=== PATIENT | male | born 1975 | race Caucasian/White ===

== ENCOUNTER 2017-11-09 00:35 | Inpatient (IN) | payer OTHER ==
[~2017-11-09] VITALS: Ht 185.4 cm; Wt 90.1 kg
[~2017-11-09 00:35] MED LIST: ALBU18HF INH; CEFD300C37 PO; CYCL-259 PO; DOXY100T PO; MORP15TA PO; MORP30TA3 PO; OXYC1TAB7 PO; OXYC1TAB8 PO; POLY17PO5 PO; PRED5TAB PO; RIVA1TAB PO; RIVA20TA PO; SENN-66 PO; SENN1TAB7 PO; ZOLP12.52 PO
[2017-11-09] MEDS ORDERED: PROMETHAZINE 25 MG/ML, 1ML ONE (01:55)
[2017-11-09] MEDS ORDERED: morphine SULFATE 10 MG/ML, 1ML ONE ×2 (01:56→11:02)
[2017-11-09] MEDS ORDERED: ONDANSETRON 2MG/ML, 2ML ONE (01:56)
[2017-11-09 02:00] LABS: ALANINE AMINOTRANSFERASE 55 U/L (12-78); ALBUMIN 3.6 g/dL (3.4-5.0); ANION GAP 8 mmol/L (5-15); CALCIUM 9.1 mg/dL (8.5-10.1); CHLORIDE 104 mmol/L (98-107); CREATININE 1.05 mg/dL (0.7-1.3)
[2017-11-09] MEDS ORDERED: SODIUM CHLORIDE FLUSH 10ML SYR IVF ONE (02:00)
[2017-11-09] MEDS ORDERED: PROMETHAZINE 25 MG/ML, 1ML IM ONE (02:00)
[2017-11-09] MEDS ORDERED: SODIUM CHLORIDE 0.9% 1,000ML IVBOLUS ONE ×3 (02:00→08:30)
[2017-11-09] MEDS ORDERED: ONDANSETRON 2MG/ML, 2ML IVPush ONE (02:00)
[2017-11-09 02:02] LABS: MD YES; MEAN CORPUSCULAR HGB CONC 32.4 g/dL (33.2-36.2); MEAN CORPUSCULAR VOLUME 89.4 fL (81-97); MEAN PLATELET VOLUME 7.7 fL (7.4-10.4); PLATELET COUNT 376 x10^3/uL (130-400); RED CELL DISTRIBUTION WIDTH 14.9 % (9.4-14.8)
[2017-11-09 02:03] LABS: ALKALINE PHOSPHATASE 61 U/L (45-117); BILIRUBIN,TOTAL 1.4 mg/dL (0.2-1.0); TOTAL PROTEIN 7.4 g/dL (6.4-8.2)
[2017-11-09] MEDS: MORPHINE SULFATE 4 MG/ML, 1ML IVPush PRN ×2 (02:10→11:11)
[2017-11-09 02:36] LABS: BASOS#(MANUAL) 0.41 x10^3/uL (0-0.1); BASOS% (MANUAL) 2 % (0-1); EOS#(MANUAL) 0.21 x10^3/uL (0.0-0.4); EOS% (MANUAL) 1 % (1-7); LYMPH#(MANUAL) 2.07 x10^3/uL (1-3.4); LYMPHS% (MANUAL) 10 % (22-44); MONOS#(MANUAL) 1.66 x10^3/uL (0.3-2.7); MONOS% (MANUAL) 8 % (2-9); SEG#(MANUAL) 16.35 x10^3/uL (1.8-6.8); SEGS% (MANUAL) 79 % (42-75)
[2017-11-09 02:38] LABS: <PLATELET ESTIMATE> ADEQUATE; <PLT MORPHOLOGY> NORMAL PLT MORPH; <RBC MORPHOLOGY> NORMAL
[2017-11-09] MEDS ORDERED: OMNIPAQUE 350 MG/ML, 100ML BOTTLE ONE ×2 (02:38→16:01)
[2017-11-09] MEDS ORDERED: PRED50TA PO (03:18)
[2017-11-09] MEDS ORDERED: HYDROmorphone 2 MG/ML, 1ML ONE ×3 (03:38→12:30)
[2017-11-09 03:42] LABS: MICROSCOPIC NOT IND
[2017-11-09 03:43] LABS: CULTURE INDICATED? NO
[2017-11-09] MEDS: HYDROmorphone 1 MG/ML, 1ML IVPush PRN ×2 (03:44→05:54)
[2017-11-09] MEDS ORDERED: SODIUM CHLORIDE 0.9% 1,000 ML IV ONE (05:42)
[2017-11-09] MEDS: D5%-0.45% NACL 1,000 ML IV SCH ×2 (06:53→21:11)
[2017-11-09] MEDS ORDERED: GUAIFENESIN/DM 200-20MG, 10ML UDC PO PRN (07:00)
[2017-11-09] MEDS ORDERED: ONDANSETRON 2MG/ML, 2ML IVPush PRN (07:00)
[2017-11-09] MEDS ORDERED: ONDANSETRON ODT 4 MG PO PRN (07:00)
[2017-11-09] MEDS ORDERED: morphine SULFATE 10 MG/ML, 1ML IVPush PRN (07:00)
[2017-11-09] MEDS ORDERED: LABETALOL 5MG/ML, 20ML IVPush PRN (07:00)
[2017-11-09] MEDS ORDERED: HYDROcodone/APAP 5/325 TABLET PO PRN (07:00)
[2017-11-09] MEDS ORDERED: MAALOX/HYOSCYAMINE/LIDOCAINE 45 ML BTL PO ONE (08:30)
[2017-11-09] MEDS ORDERED: ALBUTEROL SULFATE 2.5 MG/3 ML ONE (08:42)
[2017-11-09 09:26] LABS: D-DIMER 0.91 ug/mlFEU (0.00-0.52); INTERNATIONAL NORMALIZED RATIO 1.01 (0.93-1.1); PROTHROMBIN TIME 10.4 Seconds (9.6-11.5)
[2017-11-09] MEDS ORDERED: CYCLOBENZAPRINE 10 MG TABLET ONE (10:10)
[2017-11-09] MEDS ORDERED: SENNA/DOCUSATE TABLET ONE (10:10)
[2017-11-09] MEDS ORDERED: MAALOX/HYOSCYAMINE/LIDOCAINE 45 ML BTL ONE (10:10)
[2017-11-09] MEDS: OMEPRAZOLE 20 MG CAPSULE.DR PO SCH (10:28)
[2017-11-09] MEDS: CYCLOBENZAPRINE 10 MG TABLET PO SCH ×2 (10:29→21:10)
[2017-11-09] MEDS: SENNA/DOCUSATE TABLET PO SCH ×2 (10:29→21:00)
[2017-11-09] MEDS ORDERED: ALBUTEROL HFA 90 MCG/SPRAY INH SCH (11:00)
[2017-11-09] MEDS ORDERED: ALBUTEROL SULFATE 2.5 MG/3 ML NPPB PRN (12:00)
[2017-11-09 15:13] VITALS: BP 102/62
[2017-11-09 19:46] VITALS: BP 94/55
[2017-11-10 02:17] VITALS: BP 106/67
[2017-11-10 05:38] LABS: CHLORIDE 106 mmol/L (98-107)
[2017-11-10 05:42] LABS: MEAN CORPUSCULAR HEMOGLOBIN 29.6 pg (27.5-34.5); MEAN CORPUSCULAR HGB CONC 32.8 g/dL (33.2-36.2); MEAN CORPUSCULAR VOLUME 90.2 fL (81-97); MEAN PLATELET VOLUME 7.9 fL (7.4-10.4); PLATELET COUNT 337 x10^3/uL (130-400); RED CELL DISTRIBUTION WIDTH 14.7 % (9.4-14.8)
[2017-11-10 05:57] LABS: ALANINE AMINOTRANSFERASE 40 U/L (12-78); ALKALINE PHOSPHATASE 42 U/L (45-117); ANION GAP 6 mmol/L (5-15); BILIRUBIN,TOTAL 0.8 mg/dL (0.2-1.0); CALCIUM 8.7 mg/dL (8.5-10.1); CREATININE 0.89 mg/dL (0.7-1.3); TOTAL PROTEIN 6.4 g/dL (6.4-8.2)
[2017-11-10] MEDS: D5%-0.45% NACL 1,000 ML IV SCH (06:31)
[2017-11-10 06:51] LABS: BASOPHILS # (AUTO) 0.13 x10^3/uL (0-0.1); BASOPHILS % (AUTO) 1 % (0-1); EOSINOPHILS # (AUTO) 0.12 x10^3/uL (0-0.4); EOSINOPHILS % (AUTO) 1 % (1-7); LYMPHOCYTES # (AUTO) 2.44 x10^3/uL (1-3.4); LYMPHOCYTES % (AUTO) 23 % (22-44); MD SCAN; MONOCYTES # (AUTO) 1.57 x10^3/uL (0.2-0.8); MONOCYTES % (AUTO) 15 % (2-9); NEUTROPHILS # (AUTO) 6.34 x10^3/uL (1.8-6.8); NEUTROPHILS % (AUTO) 60 % (42-75)
[2017-11-10 07:17] VITALS: BP 97/60
[2017-11-10] MEDS ORDERED: SODIUM CHLORIDE 0.9% 1,000ML IVBOLUS ONE (08:00)
[2017-11-10] MEDS: SENNA/DOCUSATE TABLET PO SCH ×2 (09:00→20:28)
[2017-11-10] MEDS ORDERED: ALBUTEROL HFA 90 MCG/SPRAY INH PRN (11:00)
[2017-11-10] MEDS: CYCLOBENZAPRINE 10 MG TABLET PO SCH ×2 (11:27→20:28)
[2017-11-10] MEDS: OMEPRAZOLE 20 MG CAPSULE.DR PO SCH (11:27)
[2017-11-10 13:25] VITALS: BP 103/66
[2017-11-10 18:42] VITALS: BP 113/71
[2017-11-11 02:30] VITALS: BP 99/62
[2017-11-11 05:25] LABS: CHLORIDE 104 mmol/L (98-107)
[2017-11-11 05:31] LABS: ALANINE AMINOTRANSFERASE 35 U/L (12-78); ALBUMIN 2.8 g/dL (3.4-5.0); ALKALINE PHOSPHATASE 45 U/L (45-117); ANION GAP 5 mmol/L (5-15); BILIRUBIN,TOTAL 1.2 mg/dL (0.2-1.0); CALCIUM 8.7 mg/dL (8.5-10.1); CREATININE 0.84 mg/dL (0.7-1.3); TOTAL PROTEIN 6.1 g/dL (6.4-8.2)
[2017-11-11 05:38] LABS: MEAN CORPUSCULAR HEMOGLOBIN 29.7 pg (27.5-34.5); MEAN CORPUSCULAR HGB CONC 32.7 g/dL (33.2-36.2); MEAN CORPUSCULAR VOLUME 90.8 fL (81-97); MEAN PLATELET VOLUME 7.9 fL (7.4-10.4); PLATELET COUNT 325 x10^3/uL (130-400); RED BLOOD COUNT 5.44 x10^6/uL (4.38-5.82); RED CELL DISTRIBUTION WIDTH 14.5 % (9.4-14.8)
[2017-11-11] MEDS ORDERED: OMEP-110 PO (06:49)
[2017-11-11] MEDS ORDERED: MAGNESIUM HYDROXIDE 8%, 30ML UDC PO PRN (07:00)
[2017-11-11 07:33] VITALS: BP 100/62
[2017-11-11 08:00] LABS: BASOPHILS # (AUTO) 0.09 x10^3/uL (0-0.1); BASOPHILS % (AUTO) 1 % (0-1); EOSINOPHILS # (AUTO) 0.05 x10^3/uL (0-0.4); EOSINOPHILS % (AUTO) 0 % (1-7); LYMPHOCYTES # (AUTO) 3.66 x10^3/uL (1-3.4); LYMPHOCYTES % (AUTO) 23 % (22-44); MD SCAN; MONOCYTES # (AUTO) 1.61 x10^3/uL (0.2-0.8); MONOCYTES % (AUTO) 10 % (2-9); NEUTROPHILS # (AUTO) 10.33 x10^3/uL (1.8-6.8); NEUTROPHILS % (AUTO) 66 % (42-75)
[2017-11-11] MEDS: SENNA/DOCUSATE TABLET PO SCH (08:56)
[2017-11-11] MEDS: CYCLOBENZAPRINE 10 MG TABLET PO SCH (08:56)
[2017-11-11] MEDS: OMEPRAZOLE 20 MG CAPSULE.DR PO SCH (08:56)
== END 2017-11-11 11:37 | disposition home or self-care (01) | DRG 392 ==
LOC: ED 02:30 → EDIP 06:17 → 4WST 13:53
PROVIDERS: ADMIT Hospitalist; ATTEND Hospitalist
DX: K52.9 Noninfective gastroenteritis and colitis, unspecified (principal); J84.9 Interstitial pulmonary disease, unspecified; R65.10 Systemic inflammatory response syndrome (SIRS) of non-infectious origin without acute organ dysfunction; Z99.81 Dependence on supplemental oxygen; E44.1 Mild protein-calorie malnutrition; D75.1 Secondary polycythemia; R17 Unspecified jaundice; E86.0 Dehydration; M54.9 Dorsalgia, unspecified; R91.1 Solitary pulmonary nodule; Z87.891 Personal history of nicotine dependence; Z79.899 Other long term (current) drug therapy; Z68.26 Body mass index [BMI] 26.0-26.9, adult; T38.0X5A Adverse effect of glucocorticoids and synthetic analogues, initial encounter; Y92.89 Other specified places as the place of occurrence of the external cause
CPT/HCPCS: 36415; 71275; 74177; 76700; 80053; 81003; 83690; 83735; 85025; 85379; 85610; 85730; 93005; 96361; 96372; 96374; J1170; J2405; J2550; Q9967; J7030; J7512

== ENCOUNTER → 2018-11-26 | Outpatient (CLI) | payer MEDICAID ==
[~2018-11-26] MED LIST changes: +OMEP-110 PO; +PRED50TA PO; -SENN1TAB7 PO; +SENN1TAB8 PO
== END | disposition home or self-care (01) ==
LOC: CFH 14:23
PROVIDERS: ATTEND Registered Nurse
DX: J84.9 Interstitial pulmonary disease, unspecified (principal); Z72.0 Tobacco use
CPT/HCPCS: 93306

== ENCOUNTER 2018-12-04 11:27 | Day surgery (SDC) | payer MEDICAID ==
[~2018-12-04] VITALS: Ht 185.4 cm; Wt 113.6 kg
[2018-12-04] MEDS ORDERED: SODIUM CHLORIDE 0.9% 1,000 ML IV ONE (13:07)
[2018-12-04 13:26] VITALS: BP 119/74
[2018-12-04] MEDS ORDERED: PLEASE ENTER HEIGHT AND WEIGHT MC SCH (13:30)
[2018-12-04] MEDS ORDERED: DIPHENHYDRAMINE 50 MG/ML, 1ML IVPush ONE (13:30)
[2018-12-04] MEDS ORDERED: MYCO500T PO (13:45)
[2018-12-04] MEDS ORDERED: MELO7.5T31 PO (13:45)
[2018-12-04] MEDS ORDERED: OMEP-110 PO (13:45)
[2018-12-04] MEDS ORDERED: OXYC1TAB8 PO (13:45)
[2018-12-04] MEDS ORDERED: ALBU1.25 NEB (13:45)
[2018-12-04] MEDS ORDERED: CITA20TA6 PO (13:45)
[2018-12-04] MEDS ORDERED: MIDAZOLAM 1 MG/ML, 5ML ONE (14:02)
[2018-12-04] MEDS ORDERED: FENTANYL PF 100 MCG/2ML ONE ×2 (14:02→15:08)
[2018-12-04] MEDS ORDERED: HEPARIN 1,000 UNITS/ML, 10ML ONE (14:03)
[2018-12-04] MEDS ORDERED: VERAPAMIL 2.5 MG/ML, 2ML ONE (14:03)
[2018-12-04] MEDS ORDERED: LIDOCAINE 2%, 20ML ONE (14:03)
[2018-12-04] MEDS ORDERED: DIPHENHYDRAMINE 50 MG/ML, 1ML ONE (14:17)
[2018-12-04] MEDS ORDERED: LIDOCAINE 1%, 20ML ONE (15:07)
[2018-12-04] MEDS ORDERED: MIDAZOLAM 1 MG/ML, 2ML ONE (15:08)
[2018-12-04] MEDS ORDERED: SODIUM CHLORIDE 0.9% 1,000 ML IV SCH (15:38)
== END 2018-12-04 18:42 | disposition home or self-care (01) ==
LOC: CACL 11:27 → 5SO 17:00 → CACL 18:42
PROVIDERS: ATTEND Internal Medicine Cardiovascular Disease
DX: J84.89 Other specified interstitial pulmonary diseases (principal); D89.89 Other specified disorders involving the immune mechanism, not elsewhere classified; F17.211 Nicotine dependence, cigarettes, in remission; Z79.899 Other long term (current) drug therapy
CPT/HCPCS: 93460; 99156; 99157; C1760; C1769; C1894; J1200; J1644; J2250; J3010; J3490; Q9967; G0378

== ENCOUNTER → 2018-12-09 | Outpatient (CLI) | payer MEDICAID ==
[~2018-12-09] MED LIST changes: +ALBU1.25 NEB; +CITA20TA6 PO; +MELO7.5T31 PO; +MYCO500T PO
== END | disposition home or self-care (01) ==
LOC: CFH 08:00
PROVIDERS: ATTEND Registered Nurse
DX: J84.9 Interstitial pulmonary disease, unspecified (principal); J96.11 Chronic respiratory failure with hypoxia; R91.1 Solitary pulmonary nodule
CPT/HCPCS: 71250

== ENCOUNTER → 2019-01-27 | Outpatient (CLI) | payer MEDICAID ==
[~2019-01-27] MED LIST changes: -SENN-66 PO; +SENN1TAB59 PO
== END | disposition home or self-care (01) ==
LOC: CFH 12:54
PROVIDERS: ATTEND Internal Medicine Critical Care Medicine
DX: J84.9 Interstitial pulmonary disease, unspecified (principal); R09.02 Hypoxemia
CPT/HCPCS: 71250

== ENCOUNTER 2019-02-22 14:02 | Emergency (ER) | payer MEDICAID ==
[~2019-02-22] VITALS: Ht 185.4 cm; Wt 120.0 kg
[~2019-02-22 14:02] MED LIST changes: +SENN-177 PO; -SENN1TAB8 PO
--- NOTE | 2019-02-22 14:52 | NUR ---
Pt to 15 from lobby
--- NOTE | 2019-02-22 15:21 | NUR ---
ROOMED FROM [facility] FOR BILATERAL LEG SWELLING/LEFT RIB PAIN THOUGHT TO BE D/T FORCEFUL COUGH A FEW DAYS AGO WHERE HE FELT A POP. REPORTS HX OF INSTERTIAL LUNG DX WHICH HE IS ON 3L NC AND CELLCEPT FOR AMONG OTHER MEDICINES. ROOM AIR SAT OF 85%. EQUAL BREATH SOUNDS (DEMINISHED TO BASES) . ALSO REPORTS FALL A FEW DAYS AGO WELL WITH RESULTING RIGHT HAND AND LEFT UPPER BACK PAIN.) NO NEURO DEFICITS NOTED, PLACED ON 4L NC
[2019-02-22] MEDS ORDERED: PRED20TA PO (15:30)
[2019-02-22] MEDS ORDERED: SODIUM CHLORIDE FLUSH 10ML SYR IVF ONE (15:30)
[2019-02-22 15:45] LABS: BASOPHILS # (AUTO) 0.03 x10^3/uL (0-0.1); BASOPHILS % (AUTO) 0 % (0-1); EOSINOPHILS % (AUTO) 1 % (1-7); LYMPHOCYTES # (AUTO) 0.96 x10^3/uL (1-3.4); LYMPHOCYTES % (AUTO) 6 % (22-44); MD NO; MEAN CORPUSCULAR HEMOGLOBIN 30.4 pg (27.5-34.5); MEAN CORPUSCULAR HGB CONC 33.2 g/dL (33.2-36.2); MEAN CORPUSCULAR VOLUME 91.4 fL (81-97); MEAN PLATELET VOLUME 7.2 fL (7.4-10.4); MONOCYTES # (AUTO) 0.48 x10^3/uL (0.2-0.8); MONOCYTES % (AUTO) 3 % (2-9); NEUTROPHILS # (AUTO) 13.51 x10^3/uL (1.8-6.8); NEUTROPHILS % (AUTO) 89 % (42-75); PLATELET COUNT 283 x10^3/uL (130-400); RED BLOOD COUNT 4.99 x10^6/uL (4.38-5.82); RED CELL DISTRIBUTION WIDTH 14.7 % (9.4-14.8)
--- NOTE | 2019-02-22 15:49 | NUR ---
PIV PLACED, US AT BEDSIDE
[2019-02-22 15:53] LABS: ALANINE AMINOTRANSFERASE 37 U/L (12-78); ALBUMIN 3.3 g/dL (3.4-5.0); ANION GAP 6 mmol/L (5-15); CALCIUM 8.5 mg/dL (8.5-10.1); CHLORIDE 106 mmol/L (98-107); CREATININE 1.03 mg/dL (0.7-1.3)
[2019-02-22 15:58] LABS: ALKALINE PHOSPHATASE 75 U/L (45-117); BILIRUBIN,TOTAL 0.4 mg/dL (0.2-1.0); TOTAL PROTEIN 6.3 g/dL (6.4-8.2); TROPONIN I < 0.015 ng/mL (0.000-0.045)
[2019-02-22] MEDS ORDERED: MORPHINE SULFATE 4 MG/ML, 1ML ONE ×2 (16:17→17:00)
[2019-02-22] MEDS: MORPHINE SULFATE 4 MG/ML, 1ML IVPush PRN ×2 (16:19→17:04)
[2019-02-22 16:46] LABS: CULTURE INDICATED? NO; MICROSCOPIC NOT IND
[2019-02-22] MEDS ORDERED: OMNIPAQUE 350 MG/ML, 100ML BOTTLE ONE (17:01)
--- NOTE | 2019-02-22 17:02 | NUR ---
BACK FROM CT. VSS REMAIN STABLE ON 4L NC. REPORTS PAIN REMAINS AT 8/10 AFTER INITIAL DOSE OF MORPHINE. TO RE-DOSE. REMAINS ON [employer], CALL PATRICK IN HAND AND SIDERAILS UP. UPDATED ON ESTIMATED POC
--- NOTE | 2019-02-22 18:10 | NUR ---
DISCHARGED IN THE COMPANY OF HIS DESPITE RECENT MORPHINE. ROAD TEST (AMBULATION UNREMARKABLE), TAKING PO FLUID/SOLIDS W/OUT DIFFICULTY.
[2019-02-22 18:18] VITALS: BP 127/81
== END 2019-02-22 18:21 | disposition home or self-care (01) ==
LOC: ED 15:05
DX: S22.42XA Multiple fractures of ribs, left side, initial encounter for closed fracture (principal); S69.91XA Unspecified injury of right wrist, hand and finger(s), initial encounter; W18.2XXA Fall in (into) shower or empty bathtub, initial encounter; Y93.89 Activity, other specified; Y92.89 Other specified places as the place of occurrence of the external cause; Y99.8 Other external cause status
CPT/HCPCS: 36415; 71045; 71275; 80053; 81003; 83605; 83880; 84484; 85025; 87040; 93005; 93970; 96374; 96376; 99284; Q9967

== ENCOUNTER 2019-03-16 18:43 | Inpatient (IN) | payer MEDICAID ==
[~2019-03-16] VITALS: Ht 185.4 cm; Wt 117.8 kg
[~2019-03-16 18:43] MED LIST changes: +PRED20TA PO
--- NOTE | 2019-03-16 19:00 | NUR ---
NO ANSWER WHEN CALLED FOR TRIAGE @ [phone]
--- NOTE | 2019-03-16 19:36 | NUR ---
pt called to room from lobby
[2019-03-16 19:48] LABS: BASOPHILS # (AUTO) 0.04 x10^3/uL (0-0.1); BASOPHILS % (AUTO) 0 % (0-1); EOSINOPHILS # (AUTO) 0.09 x10^3/uL (0-0.4); EOSINOPHILS % (AUTO) 1 % (1-7); LYMPHOCYTES # (AUTO) 2.26 x10^3/uL (1-3.4); LYMPHOCYTES % (AUTO) 17 % (22-44); MD NO; MEAN CORPUSCULAR HEMOGLOBIN 30.2 pg (27.5-34.5); MEAN CORPUSCULAR HGB CONC 32.9 g/dL (33.2-36.2); MEAN CORPUSCULAR VOLUME 91.8 fL (81-97); MEAN PLATELET VOLUME 7.6 fL (7.4-10.4); MONOCYTES # (AUTO) 0.96 x10^3/uL (0.2-0.8); MONOCYTES % (AUTO) 7 % (2-9); NEUTROPHILS # (AUTO) 10.36 x10^3/uL (1.8-6.8); NEUTROPHILS % (AUTO) 76 % (42-75); PLATELET COUNT 230 x10^3/uL (130-400); RED BLOOD COUNT 5.07 x10^6/uL (4.38-5.82); RED CELL DISTRIBUTION WIDTH 14.5 % (9.4-14.8)
[2019-03-16 19:58] LABS: ALBUMIN 3.4 g/dL (3.4-5.0); ANION GAP 4 mmol/L (5-15); CALCIUM 9.1 mg/dL (8.5-10.1); CHLORIDE 105 mmol/L (98-107)
[2019-03-16 20:00] LABS: CREATININE 1.09 mg/dL (0.7-1.3)
--- NOTE | 2019-03-16 20:12 | NUR ---
TP RN: RT PAGED
--- NOTE | 2019-03-16 20:16 | NUR ---
SOB COUGH FOR ONE MONTH WITH RT SIDE CHEST PAIN. HX END STAGE OF LUNG DZ , HOME OXYGEN (3 LITERS). PT PLACED ON DATA ENTRY REPRESENTATIVE, ST NOTED. FAMILY AT BS, CALL LIGHT IN REACH
[2019-03-16 20:30] LABS: TROPONIN I < 0.015 ng/mL (0.000-0.045)
[2019-03-16] MEDS ORDERED: SODIUM CHLORIDE FLUSH 10ML SYR IVF ONE (20:30)
[2019-03-16] MEDS ORDERED: ALBUTEROL/IPRATROPIUM 2.5MG/0.5MG, 3 ML NPPB SCH (20:30)
--- NOTE | 2019-03-16 20:55 | NUR ---
CT PENDING IV.
[2019-03-16 21:03] LABS: RAPID INFLUENZA A Negative (Negative); RAPID INFLUENZA B Negative (Negative)
--- NOTE | 2019-03-16 21:48 | NUR ---
PT IN RADIOLOGY
[2019-03-16] MEDS ORDERED: OMNIPAQUE 350 MG/ML, 100ML BOTTLE ONE (21:57)
[2019-03-16] MEDS ORDERED: AZITHROMYCIN 500 MG in SODIUM CHLORIDE 0.9% 250 ML IVPB ONE (22:30)
[2019-03-16] MEDS ORDERED: CEFTRIAXONE PMX 1GM/50ML 50 ML IVPB ONE (22:30)
[2019-03-16] MEDS ORDERED: methylPREDNISolone SOD SUCC 125 MG/2 ML IVPush SCH (22:30)
[2019-03-16] MEDS ORDERED: CEFTRIAXONE PMX 1GM/50ML 50 ML ONE (22:55)
[2019-03-16] MEDS ORDERED: SODIUM CHLORIDE 0.9% 1,000ML IVBOLUS ONE (23:00)
[2019-03-16] MEDS ORDERED: SODIUM CHLORIDE 0.9% 1,000 ML IV SCH (23:11)
--- NOTE | 2019-03-16 23:21 | NUR ---
REPORT GIVEN TO ODESSA HENRY
[2019-03-16] MEDS ORDERED: TEMPLATE NON-FORMULARY MED. (Meloxicam** 7.5 MG) PO PRN (23:30)
[2019-03-16] MEDS ORDERED: ACETAMINOPHEN 325 MG TABLET PO PRN (23:30)
[2019-03-16] MEDS ORDERED: ALBUTEROL SULFATE 2.5 MG/3 ML NEB PRN (23:30)
[2019-03-16] MEDS ORDERED: TEMPLATE NON-FORMULARY MED. (Albuterol Sulfate (Ventolin Hfa) 1 PUFF) INH SCH (23:30)
[2019-03-16] MEDS ORDERED: BISACODYL 10 MG SUPP PR PRN (23:30)
[2019-03-16] MEDS ORDERED: KETOROLAC 30 MG/1 ML IV PRN (23:30)
[2019-03-16] MEDS ORDERED: POLYETHYLENE GLYCOL 17 GM PACKET PO PRN (23:30)
[2019-03-17 00:22] VITALS: BP 148/98
[2019-03-17] MEDS: ONDANSETRON ODT 4 MG PO PRN (01:06)
[2019-03-17] MEDS: DOXYCYCLINE 100 MG in DEXTROSE 5% 250 ML IV SCH ×3 (01:10→23:54)
[2019-03-17] MEDS: ZOLPIDEM 10MG TABLET PO SCH ×2 (01:20→20:16)
[2019-03-17] MEDS: OXYcodone/APAP 7.5/325MG TABLET PO PRN ×2 (01:20→20:26)
[2019-03-17] MEDS: HEPARIN 5,000 UNITS/ML, 1ML SQ SCH ×4 (01:21→23:58)
[2019-03-17] MEDS: CEFTRIAXONE PMX 1GM/50ML 50 ML IV SCH ×2 (01:54→22:52)
[2019-03-17 02:10] LABS: CLOSTRIDIUM DIFFICILE ANTIGEN NEGATIVE; CLOSTRIDIUM DIFFICILE TOXIN NEGATIVE (Negative)
[2019-03-17] MEDS: ERYTHROMYCIN OPHTH 0.5%, 1GM EACHEYE SCH ×5 (02:20→20:16)
[2019-03-17 02:56] VITALS: BP 123/81
[2019-03-17] MEDS: CITALOPRAM 20 MG TABLET PO SCH (05:03)
[2019-03-17 05:43] LABS: BASOPHILS # (AUTO) 0.04 x10^3/uL (0-0.1); BASOPHILS % (AUTO) 0 % (0-1); EOSINOPHILS # (AUTO) 0.03 x10^3/uL (0-0.4); EOSINOPHILS % (AUTO) 0 % (1-7); LYMPHOCYTES % (AUTO) 9 % (22-44); MD NO; MEAN CORPUSCULAR HEMOGLOBIN 30.2 pg (27.5-34.5); MEAN CORPUSCULAR VOLUME 91.3 fL (81-97); MEAN PLATELET VOLUME 7.6 fL (7.4-10.4); MONOCYTES # (AUTO) 0.61 x10^3/uL (0.2-0.8); MONOCYTES % (AUTO) 5 % (2-9); NEUTROPHILS # (AUTO) 11.03 x10^3/uL (1.8-6.8); NEUTROPHILS % (AUTO) 86 % (42-75); PLATELET COUNT 208 x10^3/uL (130-400); RED BLOOD COUNT 4.56 x10^6/uL (4.38-5.82); RED CELL DISTRIBUTION WIDTH 14.7 % (9.4-14.8)
[2019-03-17 06:03] LABS: CHLORIDE 108 mmol/L (98-107)
[2019-03-17 06:11] LABS: ALANINE AMINOTRANSFERASE 41 U/L (12-78); ALBUMIN 2.7 g/dL (3.4-5.0); ALKALINE PHOSPHATASE 118 U/L (45-117); ANION GAP 6 mmol/L (5-15); BILIRUBIN,TOTAL 0.4 mg/dL (0.2-1.0); CALCIUM 8.2 mg/dL (8.5-10.1); CREATININE 1.13 mg/dL (0.7-1.3); TOTAL PROTEIN 6.1 g/dL (6.4-8.2)
[2019-03-17 07:22] VITALS: BP 120/79
[2019-03-17 08:47] LABS: TROPONIN I < 0.015 ng/mL (0.000-0.045)
[2019-03-17] MEDS: OMEPRAZOLE 20 MG CAPSULE.DR PO SCH (08:54)
[2019-03-17] MEDS: SENNA/DOCUSATE TABLET PO SCH (08:54)
[2019-03-17 13:28] VITALS: BP 126/75
[2019-03-17] MEDS ORDERED: ALBUTEROL SULFATE 2.5 MG/3 ML NPPB PRN (16:00)
[2019-03-17 19:58] VITALS: BP 115/78
[2019-03-17] MEDS: GUAIFENESIN/DM 200-20MG, 10ML UDC PO PRN (20:16)
[2019-03-17] MEDS ORDERED: SODIUM CHLORIDE 0.9% 1,000 ML IV SCH (23:11)
[2019-03-18 02:14] VITALS: BP 136/89
[2019-03-18] MEDS: ERYTHROMYCIN OPHTH 0.5%, 1GM EACHEYE SCH ×4 (05:15→21:01)
[2019-03-18 05:43] LABS: BASOPHILS # (AUTO) 0.06 x10^3/uL (0-0.1); BASOPHILS % (AUTO) 1 % (0-1); EOSINOPHILS # (AUTO) 0.06 x10^3/uL (0-0.4); EOSINOPHILS % (AUTO) 1 % (1-7); LYMPHOCYTES # (AUTO) 1.11 x10^3/uL (1-3.4); LYMPHOCYTES % (AUTO) 10 % (22-44); MD NO; MEAN CORPUSCULAR HEMOGLOBIN 30.3 pg (27.5-34.5); MEAN CORPUSCULAR HGB CONC 33.1 g/dL (33.2-36.2); MEAN CORPUSCULAR VOLUME 91.7 fL (81-97); MEAN PLATELET VOLUME 7.4 fL (7.4-10.4); MONOCYTES % (AUTO) 6 % (2-9); NEUTROPHILS # (AUTO) 9.35 x10^3/uL (1.8-6.8); NEUTROPHILS % (AUTO) 83 % (42-75); PLATELET COUNT 192 x10^3/uL (130-400); RED BLOOD COUNT 4.49 x10^6/uL (4.38-5.82); RED CELL DISTRIBUTION WIDTH 14.7 % (9.4-14.8)
[2019-03-18 05:51] LABS: CHLORIDE 109 mmol/L (98-107)
[2019-03-18 05:58] LABS: ALANINE AMINOTRANSFERASE 33 U/L (12-78); ALBUMIN 2.6 g/dL (3.4-5.0); ALKALINE PHOSPHATASE 109 U/L (45-117); ANION GAP 4 mmol/L (5-15); BILIRUBIN,TOTAL 0.5 mg/dL (0.2-1.0); CALCIUM 8.8 mg/dL (8.5-10.1); CREATININE 0.86 mg/dL (0.7-1.3); TOTAL PROTEIN 6.1 g/dL (6.4-8.2)
[2019-03-18 07:17] VITALS: BP 113/80
[2019-03-18] MEDS: OXYcodone/APAP 7.5/325MG TABLET PO PRN ×2 (07:24→16:52)
[2019-03-18] MEDS: HEPARIN 5,000 UNITS/ML, 1ML SQ SCH ×2 (09:01→16:52)
[2019-03-18] MEDS: OMEPRAZOLE 20 MG CAPSULE.DR PO SCH (09:01)
[2019-03-18] MEDS: CITALOPRAM 20 MG TABLET PO SCH (09:01)
[2019-03-18] MEDS: SENNA/DOCUSATE TABLET PO SCH (09:01)
[2019-03-18] MEDS: DOXYCYCLINE 100 MG in DEXTROSE 5% 250 ML IV SCH ×2 (11:28→23:22)
[2019-03-18] MEDS: GUAIFENESIN/DM 200-20MG, 10ML UDC PO PRN (11:38)
[2019-03-18 13:39] VITALS: BP 116/78
[2019-03-18] MEDS: GUAIFENESIN 200 MG TABLET PO SCH ×2 (16:52→21:01)
[2019-03-18 20:48] VITALS: BP 120/81
[2019-03-18] MEDS: ZOLPIDEM 10MG TABLET PO SCH (21:01)
[2019-03-18] MEDS: CEFTRIAXONE PMX 1GM/50ML 50 ML IV SCH (22:42)
[2019-03-19] MEDS: HEPARIN 5,000 UNITS/ML, 1ML SQ SCH ×3 (00:55→16:11)
[2019-03-19 02:10] VITALS: BP 111/70
[2019-03-19] MEDS: ERYTHROMYCIN OPHTH 0.5%, 1GM EACHEYE SCH ×4 (05:19→21:27)
[2019-03-19] MEDS: GUAIFENESIN 200 MG TABLET PO SCH ×4 (05:19→21:28)
[2019-03-19 06:56] VITALS: BP 110/72
[2019-03-19] MEDS ORDERED: ALBUTEROL/IPRATROPIUM 2.5MG/0.5MG, 3 ML HHN SCH (07:00)
[2019-03-19 07:14] LABS: ALBUMIN 2.8 g/dL (3.4-5.0); ANION GAP 5 mmol/L (5-15); CALCIUM 9.1 mg/dL (8.5-10.1); CHLORIDE 106 mmol/L (98-107)
[2019-03-19 07:18] LABS: ALANINE AMINOTRANSFERASE 37 U/L (12-78); ALKALINE PHOSPHATASE 116 U/L (45-117); BILIRUBIN,TOTAL 0.3 mg/dL (0.2-1.0); CREATININE 0.89 mg/dL (0.7-1.3); TOTAL PROTEIN 6.9 g/dL (6.4-8.2)
[2019-03-19 07:29] LABS: MEAN CORPUSCULAR HEMOGLOBIN 29.9 pg (27.5-34.5); MEAN CORPUSCULAR HGB CONC 32.9 g/dL (33.2-36.2); MEAN PLATELET VOLUME 7.3 fL (7.4-10.4); PLATELET COUNT 249 x10^3/uL (130-400); RED BLOOD COUNT 4.87 x10^6/uL (4.38-5.82); RED CELL DISTRIBUTION WIDTH 14.1 % (9.4-14.8)
[2019-03-19 08:08] LABS: BASOPHILS # (AUTO) 0.15 x10^3/uL (0-0.1); BASOPHILS % (AUTO) 1 % (0-1); EOSINOPHILS # (AUTO) 0.03 x10^3/uL (0-0.4); EOSINOPHILS % (AUTO) 0 % (1-7); LYMPHOCYTES # (AUTO) 1.25 x10^3/uL (1-3.4); LYMPHOCYTES % (AUTO) 11 % (22-44); MD SCAN; MONOCYTES # (AUTO) 0.78 x10^3/uL (0.2-0.8); MONOCYTES % (AUTO) 7 % (2-9); NEUTROPHILS # (AUTO) 9.66 x10^3/uL (1.8-6.8); NEUTROPHILS % (AUTO) 81 % (42-75)
[2019-03-19] MEDS: OXYcodone/APAP 7.5/325MG TABLET PO PRN ×2 (08:09→16:10)
[2019-03-19] MEDS: OMEPRAZOLE 20 MG CAPSULE.DR PO SCH (08:10)
[2019-03-19] MEDS: SENNA/DOCUSATE TABLET PO SCH (08:10)
[2019-03-19] MEDS: CITALOPRAM 20 MG TABLET PO SCH (08:10)
[2019-03-19 08:34] VITALS: BP 100/68
[2019-03-19] MEDS: DOXYCYCLINE 100 MG in DEXTROSE 5% 250 ML IV SCH (11:45)
[2019-03-19 15:44] VITALS: BP 125/87
[2019-03-19 19:59] VITALS: BP 114/78
[2019-03-19] MEDS: ZOLPIDEM 10MG TABLET PO SCH (21:28)
[2019-03-19] MEDS: CEFTRIAXONE PMX 1GM/50ML 50 ML IV SCH (23:39)
[2019-03-20] MEDS: DOXYCYCLINE 100 MG in DEXTROSE 5% 250 ML IV SCH ×3 (00:18→12:39)
[2019-03-20 00:45] VITALS: BP 112/77
[2019-03-20] MEDS: HEPARIN 5,000 UNITS/ML, 1ML SQ SCH ×3 (01:03→17:27)
[2019-03-20] MEDS: ERYTHROMYCIN OPHTH 0.5%, 1GM EACHEYE SCH ×4 (05:20→21:30)
[2019-03-20] MEDS: GUAIFENESIN 200 MG TABLET PO SCH ×4 (05:20→21:30)
[2019-03-20 05:58] LABS: BASOPHILS # (AUTO) 0.03 x10^3/uL (0-0.1); BASOPHILS % (AUTO) 0 % (0-1); EOSINOPHILS % (AUTO) 1 % (1-7); LYMPHOCYTES % (AUTO) 12 % (22-44); MD NO; MEAN CORPUSCULAR HEMOGLOBIN 30.1 pg (27.5-34.5); MEAN CORPUSCULAR HGB CONC 32.9 g/dL (33.2-36.2); MEAN CORPUSCULAR VOLUME 91.5 fL (81-97); MEAN PLATELET VOLUME 7.5 fL (7.4-10.4); MONOCYTES # (AUTO) 0.75 x10^3/uL (0.2-0.8); MONOCYTES % (AUTO) 6 % (2-9); NEUTROPHILS # (AUTO) 9.87 x10^3/uL (1.8-6.8); NEUTROPHILS % (AUTO) 81 % (42-75); PLATELET COUNT 241 x10^3/uL (130-400); RED BLOOD COUNT 4.96 x10^6/uL (4.38-5.82); RED CELL DISTRIBUTION WIDTH 14.5 % (9.4-14.8)
[2019-03-20 07:32] VITALS: BP 116/73
[2019-03-20] MEDS: OMEPRAZOLE 20 MG CAPSULE.DR PO SCH (09:37)
[2019-03-20] MEDS: METOPROLOL TARTRATE 25 MG TABLET PO SCH (09:37)
[2019-03-20] MEDS: CITALOPRAM 20 MG TABLET PO SCH (09:37)
[2019-03-20] MEDS: SENNA/DOCUSATE TABLET PO SCH (09:38)
[2019-03-20 13:54] VITALS: BP 104/77
[2019-03-20] MEDS: POTASSIUM CHLORIDE 20 MEQ TAB.ER.PRT PO SCH (17:22)
[2019-03-20] MEDS: FUROSEMIDE 20 MG/2 ML IV SCH (17:29)
[2019-03-20 20:29] VITALS: BP 117/74
[2019-03-20] MEDS: OXYcodone/APAP 7.5/325MG TABLET PO PRN (21:30)
[2019-03-20] MEDS: ZOLPIDEM 10MG TABLET PO SCH (21:30)
[2019-03-20] MEDS: CEFTRIAXONE PMX 1GM/50ML 50 ML IV SCH (23:37)
[2019-03-21 01:36] VITALS: BP 102/65
[2019-03-21] MEDS: HEPARIN 5,000 UNITS/ML, 1ML SQ SCH ×3 (01:52→20:58)
[2019-03-21 05:23] LABS: BASOPHILS # (AUTO) 0.08 x10^3/uL (0-0.1); BASOPHILS % (AUTO) 1 % (0-1); EOSINOPHILS # (AUTO) 0.12 x10^3/uL (0-0.4); EOSINOPHILS % (AUTO) 1 % (1-7); LYMPHOCYTES # (AUTO) 1.46 x10^3/uL (1-3.4); LYMPHOCYTES % (AUTO) 9 % (22-44); MD NO; MEAN CORPUSCULAR HEMOGLOBIN 30.5 pg (27.5-34.5); MEAN CORPUSCULAR HGB CONC 33.4 g/dL (33.2-36.2); MEAN CORPUSCULAR VOLUME 91.3 fL (81-97); MEAN PLATELET VOLUME 7.3 fL (7.4-10.4); MONOCYTES # (AUTO) 0.54 x10^3/uL (0.2-0.8); MONOCYTES % (AUTO) 3 % (2-9); NEUTROPHILS # (AUTO) 13.79 x10^3/uL (1.8-6.8); NEUTROPHILS % (AUTO) 86 % (42-75); PLATELET COUNT 229 x10^3/uL (130-400); RED BLOOD COUNT 5.05 x10^6/uL (4.38-5.82); RED CELL DISTRIBUTION WIDTH 13.9 % (9.4-14.8)
[2019-03-21] MEDS: GUAIFENESIN 200 MG TABLET PO SCH ×4 (06:46→20:57)
[2019-03-21] MEDS: ERYTHROMYCIN OPHTH 0.5%, 1GM EACHEYE SCH ×4 (06:46→20:58)
[2019-03-21 07:17] VITALS: BP 108/68
[2019-03-21] MEDS: OMEPRAZOLE 20 MG CAPSULE.DR PO SCH (08:39)
[2019-03-21] MEDS: FUROSEMIDE 20 MG/2 ML IV SCH ×2 (08:39→16:42)
[2019-03-21] MEDS: POTASSIUM CHLORIDE 20 MEQ TAB.ER.PRT PO SCH ×2 (08:39→16:42)
[2019-03-21] MEDS: CITALOPRAM 20 MG TABLET PO SCH (08:39)
[2019-03-21] MEDS: SENNA/DOCUSATE TABLET PO SCH (08:40)
[2019-03-21] MEDS: METOPROLOL TARTRATE 25 MG TABLET PO SCH (08:41)
[2019-03-21] MEDS: DOXYCYCLINE 100 MG in DEXTROSE 5% 250 ML IV SCH (11:11)
[2019-03-21] MEDS: OXYcodone/APAP 7.5/325MG TABLET PO PRN (11:22)
[2019-03-21 14:06] VITALS: BP 102/74
[2019-03-21] MEDS: ZOLPIDEM 10MG TABLET PO SCH (20:57)
[2019-03-21 21:30] VITALS: BP 113/81
[2019-03-21] MEDS: CEFTRIAXONE PMX 1GM/50ML 50 ML IV SCH (23:12)
[2019-03-22] MEDS: DOXYCYCLINE 100 MG in DEXTROSE 5% 250 ML IV SCH ×2 (00:07→11:36)
[2019-03-22 01:03] VITALS: BP 121/82
[2019-03-22] MEDS: ERYTHROMYCIN OPHTH 0.5%, 1GM EACHEYE SCH ×4 (05:29→20:43)
[2019-03-22] MEDS: HEPARIN 5,000 UNITS/ML, 1ML SQ SCH (05:29)
[2019-03-22] MEDS: GUAIFENESIN 200 MG TABLET PO SCH ×4 (05:29→20:43)
[2019-03-22 06:18] LABS: MEAN CORPUSCULAR HEMOGLOBIN 29.9 pg (27.5-34.5); MEAN CORPUSCULAR HGB CONC 32.6 g/dL (33.2-36.2); MEAN CORPUSCULAR VOLUME 91.5 fL (81-97); MEAN PLATELET VOLUME 7.4 fL (7.4-10.4); PLATELET COUNT 254 x10^3/uL (130-400); RED BLOOD COUNT 5.36 x10^6/uL (4.38-5.82)
[2019-03-22 06:35] LABS: CALCIUM 9.5 mg/dL (8.5-10.1)
[2019-03-22 06:37] LABS: ALBUMIN 3.2 g/dL (3.4-5.0)
[2019-03-22 06:39] LABS: ANION GAP 4 mmol/L (5-15); CHLORIDE 103 mmol/L (98-107)
[2019-03-22 06:43] LABS: ALANINE AMINOTRANSFERASE 31 U/L (12-78); ALKALINE PHOSPHATASE 110 U/L (45-117); BILIRUBIN,TOTAL 0.4 mg/dL (0.2-1.0); CREATININE 1.09 mg/dL (0.7-1.3); TOTAL PROTEIN 7.1 g/dL (6.4-8.2)
[2019-03-22 06:53] LABS: BASOPHILS # (AUTO) 0.21 x10^3/uL (0-0.1); BASOPHILS % (AUTO) 1 % (0-1); EOSINOPHILS % (AUTO) 0 % (1-7); LYMPHOCYTES # (AUTO) 1.61 x10^3/uL (1-3.4); LYMPHOCYTES % (AUTO) 9 % (22-44); MD SCAN; MONOCYTES # (AUTO) 0.67 x10^3/uL (0.2-0.8); MONOCYTES % (AUTO) 4 % (2-9); NEUTROPHILS # (AUTO) 16.05 x10^3/uL (1.8-6.8); NEUTROPHILS % (AUTO) 87 % (42-75)
[2019-03-22 07:49] VITALS: BP 103/72
[2019-03-22 07:53] LABS: ANION GAP 4 mmol/L (5-15); CALCIUM 9.4 mg/dL (8.5-10.1); CHLORIDE 104 mmol/L (98-107); CREATININE 1.07 mg/dL (0.7-1.3)
[2019-03-22] MEDS: SENNA/DOCUSATE TABLET PO SCH (09:00)
[2019-03-22] MEDS: FUROSEMIDE 20 MG/2 ML IV SCH ×2 (09:24→18:01)
[2019-03-22] MEDS: OXYcodone/APAP 7.5/325MG TABLET PO PRN ×2 (09:24→17:00)
[2019-03-22] MEDS: OMEPRAZOLE 20 MG CAPSULE.DR PO SCH (09:24)
[2019-03-22] MEDS: CITALOPRAM 20 MG TABLET PO SCH (09:25)
[2019-03-22] MEDS: METOPROLOL TARTRATE 25 MG TABLET PO SCH (09:25)
[2019-03-22] MEDS: ENOXAPARIN 40 MG/0.4 ML SQ SCH (09:26)
[2019-03-22 12:52] VITALS: BP 121/83
[2019-03-22 20:42] VITALS: BP 109/71
[2019-03-22] MEDS: ZOLPIDEM 10MG TABLET PO SCH (20:44)
[2019-03-23] MEDS: CEFTRIAXONE PMX 1GM/50ML 50 ML IV SCH ×2 (00:02→23:40)
[2019-03-23] MEDS: DOXYCYCLINE 100 MG in DEXTROSE 5% 250 ML IV SCH ×2 (00:51→13:42)
[2019-03-23 00:53] VITALS: BP 113/73
[2019-03-23] MEDS: ERYTHROMYCIN OPHTH 0.5%, 1GM EACHEYE SCH ×4 (05:53→20:31)
[2019-03-23] MEDS: GUAIFENESIN 200 MG TABLET PO SCH ×4 (05:53→20:30)
[2019-03-23 06:21] LABS: BASOPHILS # (AUTO) 0.04 x10^3/uL (0-0.1); BASOPHILS % (AUTO) 0 % (0-1); EOSINOPHILS # (AUTO) 0.02 x10^3/uL (0-0.4); EOSINOPHILS % (AUTO) 0 % (1-7); LYMPHOCYTES # (AUTO) 1.78 x10^3/uL (1-3.4); LYMPHOCYTES % (AUTO) 10 % (22-44); MD NO; MEAN CORPUSCULAR HEMOGLOBIN 30.3 pg (27.5-34.5); MEAN CORPUSCULAR HGB CONC 33.2 g/dL (33.2-36.2); MEAN CORPUSCULAR VOLUME 91.5 fL (81-97); MEAN PLATELET VOLUME 7.4 fL (7.4-10.4); MONOCYTES # (AUTO) 0.65 x10^3/uL (0.2-0.8); MONOCYTES % (AUTO) 4 % (2-9); NEUTROPHILS # (AUTO) 15.27 x10^3/uL (1.8-6.8); NEUTROPHILS % (AUTO) 86 % (42-75); PLATELET COUNT 262 x10^3/uL (130-400); RED BLOOD COUNT 5.07 x10^6/uL (4.38-5.82); RED CELL DISTRIBUTION WIDTH 14.5 % (9.4-14.8)
[2019-03-23 07:30] VITALS: BP 104/68
[2019-03-23] MEDS: ENOXAPARIN 40 MG/0.4 ML SQ SCH (07:48)
[2019-03-23] MEDS: OMEPRAZOLE 20 MG CAPSULE.DR PO SCH (07:48)
[2019-03-23] MEDS: METOPROLOL TARTRATE 25 MG TABLET PO SCH ×3 (07:49→20:29)
[2019-03-23] MEDS: OXYcodone/APAP 7.5/325MG TABLET PO PRN ×3 (07:49→23:47)
[2019-03-23] MEDS: CITALOPRAM 20 MG TABLET PO SCH (07:49)
[2019-03-23] MEDS: FUROSEMIDE 20 MG/2 ML IV SCH ×2 (07:50→16:24)
[2019-03-23] MEDS: SENNA/DOCUSATE TABLET PO SCH (07:51)
[2019-03-23 11:59] VITALS: BP 118/88
[2019-03-23 12:15] VITALS: BP 118/88
[2019-03-23 13:32] LABS: O2 FLOW 3 L/min
[2019-03-23 20:13] VITALS: BP 100/70
[2019-03-23] MEDS: DOXYCYCLINE 100MG TABLET PO SCH (20:29)
[2019-03-23] MEDS: ZOLPIDEM 10MG TABLET PO SCH (20:30)
[2019-03-24 00:56] VITALS: BP 109/73
[2019-03-24] MEDS: GUAIFENESIN 200 MG TABLET PO SCH ×4 (05:25→22:07)
[2019-03-24] MEDS: ERYTHROMYCIN OPHTH 0.5%, 1GM EACHEYE SCH ×4 (05:25→22:07)
[2019-03-24 06:00] LABS: BASOPHILS # (AUTO) 0.02 x10^3/uL (0-0.1); BASOPHILS % (AUTO) 0 % (0-1); EOSINOPHILS # (AUTO) 0.21 x10^3/uL (0-0.4); EOSINOPHILS % (AUTO) 2 % (1-7); LYMPHOCYTES # (AUTO) 1.75 x10^3/uL (1-3.4); LYMPHOCYTES % (AUTO) 12 % (22-44); MD NO; MEAN CORPUSCULAR HEMOGLOBIN 30.7 pg (27.5-34.5); MEAN CORPUSCULAR HGB CONC 33.7 g/dL (33.2-36.2); MEAN CORPUSCULAR VOLUME 91.2 fL (81-97); MEAN PLATELET VOLUME 7.6 fL (7.4-10.4); MONOCYTES # (AUTO) 0.46 x10^3/uL (0.2-0.8); MONOCYTES % (AUTO) 3 % (2-9); NEUTROPHILS % (AUTO) 83 % (42-75); PLATELET COUNT 259 x10^3/uL (130-400); RED BLOOD COUNT 4.95 x10^6/uL (4.38-5.82); RED CELL DISTRIBUTION WIDTH 14.4 % (9.4-14.8)
[2019-03-24 06:06] LABS: ALBUMIN 3.2 g/dL (3.4-5.0); CALCIUM 8.9 mg/dL (8.5-10.1); CHLORIDE 102 mmol/L (98-107)
[2019-03-24 06:12] LABS: ALANINE AMINOTRANSFERASE 33 U/L (12-78); ALKALINE PHOSPHATASE 95 U/L (45-117); ANION GAP 6 mmol/L (5-15); BILIRUBIN,TOTAL 0.5 mg/dL (0.2-1.0); CREATININE 1.16 mg/dL (0.7-1.3); TOTAL PROTEIN 6.5 g/dL (6.4-8.2)
[2019-03-24 07:45] VITALS: BP 100/62
[2019-03-24] MEDS: OMEPRAZOLE 20 MG CAPSULE.DR PO SCH (08:53)
[2019-03-24] MEDS: DOXYCYCLINE 100MG TABLET PO SCH ×2 (08:53→22:07)
[2019-03-24] MEDS: CITALOPRAM 20 MG TABLET PO SCH (08:53)
[2019-03-24] MEDS: ENOXAPARIN 40 MG/0.4 ML SQ SCH (08:53)
[2019-03-24] MEDS: METOPROLOL TARTRATE 25 MG TABLET PO SCH ×2 (08:53→22:08)
[2019-03-24] MEDS: SENNA/DOCUSATE TABLET PO SCH (08:54)
[2019-03-24] MEDS: FUROSEMIDE 20 MG/2 ML IV SCH ×2 (08:54→16:30)
[2019-03-24 09:03] VITALS: BP 120/68
[2019-03-24 15:49] VITALS: BP 119/84
[2019-03-24] MEDS: OXYcodone/APAP 7.5/325MG TABLET PO PRN (16:35)
[2019-03-24 20:37] VITALS: BP 103/67
[2019-03-24] MEDS: ZOLPIDEM 10MG TABLET PO SCH (22:07)
[2019-03-24 22:13] VITALS: BP 113/68
[2019-03-24] MEDS: CEFTRIAXONE PMX 1GM/50ML 50 ML IV SCH (23:27)
[2019-03-25] MEDS: OXYcodone/APAP 7.5/325MG TABLET PO PRN ×2 (02:21→15:37)
[2019-03-25 03:30] VITALS: BP 114/69
[2019-03-25] MEDS: GUAIFENESIN 200 MG TABLET PO SCH ×4 (05:17→20:15)
[2019-03-25] MEDS: ERYTHROMYCIN OPHTH 0.5%, 1GM EACHEYE SCH ×4 (05:17→20:16)
[2019-03-25 05:55] LABS: MEAN CORPUSCULAR HGB CONC 32.6 g/dL (33.2-36.2); MEAN CORPUSCULAR VOLUME 92.1 fL (81-97); MEAN PLATELET VOLUME 7.7 fL (7.4-10.4); PLATELET COUNT 273 x10^3/uL (130-400); RED BLOOD COUNT 4.76 x10^6/uL (4.38-5.82); RED CELL DISTRIBUTION WIDTH 14.7 % (9.4-14.8)
[2019-03-25 06:38] LABS: BASOPHILS # (AUTO) 0.02 x10^3/uL (0-0.1); BASOPHILS % (AUTO) 0 % (0-1); EOSINOPHILS # (AUTO) 0.01 x10^3/uL (0-0.4); EOSINOPHILS % (AUTO) 0 % (1-7); LYMPHOCYTES # (AUTO) 1.79 x10^3/uL (1-3.4); LYMPHOCYTES % (AUTO) 12 % (22-44); MD SCAN; MONOCYTES # (AUTO) 0.71 x10^3/uL (0.2-0.8); MONOCYTES % (AUTO) 5 % (2-9); NEUTROPHILS # (AUTO) 12.35 x10^3/uL (1.8-6.8); NEUTROPHILS % (AUTO) 83 % (42-75)
[2019-03-25] MEDS: OMEPRAZOLE 20 MG CAPSULE.DR PO SCH (07:39)
[2019-03-25] MEDS: FUROSEMIDE 20 MG/2 ML IV SCH ×2 (07:40→15:37)
[2019-03-25] MEDS: CITALOPRAM 20 MG TABLET PO SCH (07:40)
[2019-03-25] MEDS: METOPROLOL TARTRATE 25 MG TABLET PO SCH ×2 (07:40→20:15)
[2019-03-25] MEDS: DOXYCYCLINE 100MG TABLET PO SCH ×2 (07:40→20:15)
[2019-03-25] MEDS: ENOXAPARIN 40 MG/0.4 ML SQ SCH (07:40)
[2019-03-25] MEDS: SENNA/DOCUSATE TABLET PO SCH (07:41)
[2019-03-25 07:48] VITALS: BP 108/76
[2019-03-25 13:24] VITALS: BP 119/76
[2019-03-25] MEDS ORDERED: OMNIPAQUE 350 MG/ML, 100ML BOTTLE ONE (17:47)
[2019-03-25 18:56] LABS: INTERNATIONAL NORMALIZED RATIO 0.93 (0.93-1.1); PROTHROMBIN TIME 9.8 Seconds (9.6-11.5)
[2019-03-25] MEDS ORDERED: HEPARIN 5,000 UNITS/ML, 1ML IV PRN (19:00)
[2019-03-25] MEDS ORDERED: HEPARIN 5,000 UNITS/ML, 1ML IV ONE (19:00)
[2019-03-25] MEDS ORDERED: HEPARIN 25,000 UNITS/500ML PMX 500 ML IV PRN (19:00)
[2019-03-25 20:00] VITALS: BP 104/72
[2019-03-25] MEDS: ZOLPIDEM 10MG TABLET PO SCH (20:16)
[2019-03-26] MEDS: CEFTRIAXONE PMX 1GM/50ML 50 ML IV SCH (00:18)
[2019-03-26 02:03] VITALS: BP 99/63
[2019-03-26] MEDS: OXYcodone/APAP 7.5/325MG TABLET PO PRN ×3 (02:49→17:30)
[2019-03-26 04:48] LABS: MEAN CORPUSCULAR HEMOGLOBIN 30.2 pg (27.5-34.5); MEAN CORPUSCULAR HGB CONC 33.1 g/dL (33.2-36.2); MEAN CORPUSCULAR VOLUME 91.2 fL (81-97); MEAN PLATELET VOLUME 7.5 fL (7.4-10.4); PLATELET COUNT 271 x10^3/uL (130-400); RED BLOOD COUNT 4.72 x10^6/uL (4.38-5.82); RED CELL DISTRIBUTION WIDTH 14.6 % (9.4-14.8)
[2019-03-26 04:51] LABS: ANION GAP 8 mmol/L (5-15); CALCIUM 8.7 mg/dL (8.5-10.1); CHLORIDE 106 mmol/L (98-107)
[2019-03-26 04:58] LABS: ALANINE AMINOTRANSFERASE 32 U/L (12-78); ALKALINE PHOSPHATASE 77 U/L (45-117); BILIRUBIN,TOTAL 0.3 mg/dL (0.2-1.0); CREATININE 1.15 mg/dL (0.7-1.3)
[2019-03-26] MEDS: ERYTHROMYCIN OPHTH 0.5%, 1GM EACHEYE SCH ×4 (05:29→19:19)
[2019-03-26] MEDS: GUAIFENESIN 200 MG TABLET PO SCH ×4 (05:29→19:15)
[2019-03-26 05:56] LABS: BASOPHILS # (AUTO) 0.06 x10^3/uL (0-0.1); BASOPHILS % (AUTO) 0 % (0-1); EOSINOPHILS # (AUTO) 0.02 x10^3/uL (0-0.4); EOSINOPHILS % (AUTO) 0 % (1-7); LYMPHOCYTES # (AUTO) 2.21 x10^3/uL (1-3.4); LYMPHOCYTES % (AUTO) 15 % (22-44); MONOCYTES % (AUTO) 3 % (2-9); NEUTROPHILS # (AUTO) 12.41 x10^3/uL (1.8-6.8); NEUTROPHILS % (AUTO) 82 % (42-75)
[2019-03-26 05:57] LABS: MD SCAN
[2019-03-26 07:58] VITALS: BP 113/73
[2019-03-26] MEDS: CEFDINIR 300 MG CAPSULE PO SCH ×2 (09:26→19:16)
[2019-03-26] MEDS: OMEPRAZOLE 20 MG CAPSULE.DR PO SCH (09:26)
[2019-03-26] MEDS: CITALOPRAM 20 MG TABLET PO SCH (09:26)
[2019-03-26] MEDS: DOXYCYCLINE 100MG TABLET PO SCH ×2 (09:27→19:16)
[2019-03-26] MEDS: SENNA/DOCUSATE TABLET PO SCH (09:28)
[2019-03-26] MEDS: METOPROLOL TARTRATE 25 MG TABLET PO SCH ×2 (09:38→19:16)
[2019-03-26] MEDS: RIVAROXABAN 15 MG TABLET PO SCH ×3 (09:38→17:30)
[2019-03-26] MEDS: FUROSEMIDE 40 MG TABLET PO SCH (09:38)
[2019-03-26 20:04] VITALS: BP 117/71
[2019-03-26] MEDS: ZOLPIDEM 10MG TABLET PO SCH (21:04)
[2019-03-27 01:18] VITALS: BP 102/64
[2019-03-27] MEDS: ERYTHROMYCIN OPHTH 0.5%, 1GM EACHEYE SCH ×4 (04:43→20:19)
[2019-03-27] MEDS: GUAIFENESIN 200 MG TABLET PO SCH ×4 (06:23→20:20)
[2019-03-27 06:26] LABS: MEAN CORPUSCULAR HEMOGLOBIN 29.6 pg (27.5-34.5); MEAN CORPUSCULAR VOLUME 89.7 fL (81-97); MEAN PLATELET VOLUME 7.4 fL (7.4-10.4); PLATELET COUNT 243 x10^3/uL (130-400); RED BLOOD COUNT 4.69 x10^6/uL (4.38-5.82); RED CELL DISTRIBUTION WIDTH 14.5 % (9.4-14.8)
[2019-03-27 06:44] LABS: MD YES
[2019-03-27 06:49] LABS: BAND#(MANUAL) 0.68 x10^3/uL; BANDS%(MANUAL) 4 % (0-7); LYMPH#(MANUAL) 2.04 x10^3/uL (1-3.4); LYMPHS% (MANUAL) 12 % (22-44); METAMYELOCYTES# (MANUAL) 0.51 x10^3/uL (0-0); METAMYELOCYTES% (MANUAL) 3 % (0-1); MONOS#(MANUAL) 0.51 x10^3/uL (0.3-2.7); MONOS% (MANUAL) 3 % (2-9); MYELOCYTES# (MANUAL) 0.17 x10^3/uL (0-0); MYELOCYTES% (MANUAL) 1 % (0-0); SEG#(MANUAL) 13.09 x10^3/uL (1.8-6.8); SEGS% (MANUAL) 77 % (42-75)
[2019-03-27 06:50] VITALS: BP 110/78
[2019-03-27 06:52] LABS: <PLATELET ESTIMATE> ADEQUATE; <PLT MORPHOLOGY> NORMAL PLT MORPH; <RBC MORPHOLOGY> NORMAL
[2019-03-27] MEDS: RIVAROXABAN 15 MG TABLET PO SCH ×2 (08:30→17:52)
[2019-03-27] MEDS: CEFDINIR 300 MG CAPSULE PO SCH ×2 (08:30→20:20)
[2019-03-27] MEDS: FUROSEMIDE 40 MG TABLET PO SCH (08:30)
[2019-03-27] MEDS: OMEPRAZOLE 20 MG CAPSULE.DR PO SCH (08:30)
[2019-03-27] MEDS: DOXYCYCLINE 100MG TABLET PO SCH ×2 (08:30→20:20)
[2019-03-27] MEDS: CITALOPRAM 20 MG TABLET PO SCH (08:30)
[2019-03-27] MEDS: OXYcodone/APAP 7.5/325MG TABLET PO PRN ×2 (08:30→17:52)
[2019-03-27] MEDS: METOPROLOL TARTRATE 50 MG TABLET PO SCH ×2 (08:31→20:20)
[2019-03-27] MEDS: SENNA/DOCUSATE TABLET PO SCH (08:31)
[2019-03-27 13:10] VITALS: BP 111/80
[2019-03-27 19:52] VITALS: BP 122/83
[2019-03-27] MEDS: ZOLPIDEM 10MG TABLET PO SCH (20:20)
[2019-03-28 01:01] VITALS: BP 121/76
[2019-03-28] MEDS: ERYTHROMYCIN OPHTH 0.5%, 1GM EACHEYE SCH ×4 (04:58→20:30)
[2019-03-28 05:25] LABS: MEAN CORPUSCULAR HEMOGLOBIN 30.3 pg (27.5-34.5); MEAN CORPUSCULAR HGB CONC 33.3 g/dL (33.2-36.2); MEAN CORPUSCULAR VOLUME 90.9 fL (81-97); MEAN PLATELET VOLUME 7.5 fL (7.4-10.4); PLATELET COUNT 304 x10^3/uL (130-400); RED BLOOD COUNT 4.68 x10^6/uL (4.38-5.82); RED CELL DISTRIBUTION WIDTH 14.4 % (9.4-14.8)
[2019-03-28 05:27] LABS: CHLORIDE 105 mmol/L (98-107)
[2019-03-28 05:41] LABS: ALANINE AMINOTRANSFERASE 37 U/L (12-78); ALBUMIN 3.2 g/dL (3.4-5.0); ALKALINE PHOSPHATASE 71 U/L (45-117); ANION GAP 7 mmol/L (5-15); BILIRUBIN,TOTAL 0.2 mg/dL (0.2-1.0); CALCIUM 9.1 mg/dL (8.5-10.1); CREATININE 0.94 mg/dL (0.7-1.3); TOTAL PROTEIN 6.3 g/dL (6.4-8.2)
[2019-03-28] MEDS: GUAIFENESIN 200 MG TABLET PO SCH ×4 (06:12→20:30)
[2019-03-28 06:39] LABS: MD YES
[2019-03-28 06:41] LABS: BAND#(MANUAL) 0.64 x10^3/uL; BANDS%(MANUAL) 4 % (0-7); LYMPH#(MANUAL) 2.88 x10^3/uL (1-3.4); LYMPHS% (MANUAL) 18 % (22-44); METAMYELOCYTES# (MANUAL) 0.16 x10^3/uL (0-0); METAMYELOCYTES% (MANUAL) 1 % (0-1); MONOS#(MANUAL) 1.12 x10^3/uL (0.3-2.7); MONOS% (MANUAL) 7 % (2-9); SEGS% (MANUAL) 70 % (42-75)
[2019-03-28 06:43] LABS: <PLATELET ESTIMATE> ADEQUATE; <PLT MORPHOLOGY> NORMAL PLT MORPH; <RBC MORPHOLOGY> NORMAL
[2019-03-28] MEDS: SENNA/DOCUSATE TABLET PO SCH (09:00)
[2019-03-28 09:31] VITALS: BP 110/76
[2019-03-28] MEDS: METOPROLOL TARTRATE 100 MG TABLET PO SCH ×2 (09:33→20:29)
[2019-03-28] MEDS: CITALOPRAM 20 MG TABLET PO SCH (09:33)
[2019-03-28] MEDS: RIVAROXABAN 15 MG TABLET PO SCH ×2 (09:33→17:17)
[2019-03-28] MEDS: DOXYCYCLINE 100MG TABLET PO SCH ×2 (09:33→20:29)
[2019-03-28] MEDS: CEFDINIR 300 MG CAPSULE PO SCH ×2 (09:34→20:29)
[2019-03-28] MEDS: OXYcodone/APAP 7.5/325MG TABLET PO PRN ×2 (09:34→18:37)
[2019-03-28] MEDS: OMEPRAZOLE 20 MG CAPSULE.DR PO SCH (09:34)
[2019-03-28] MEDS: FUROSEMIDE 40 MG TABLET PO SCH (09:35)
[2019-03-28 13:19] VITALS: BP 113/78
[2019-03-28 19:59] VITALS: BP 119/71
[2019-03-28] MEDS: ZOLPIDEM 10MG TABLET PO SCH (20:29)
[2019-03-28] MEDS: ONDANSETRON ODT 4 MG PO PRN (20:30)
[2019-03-29 00:46] VITALS: BP 110/74
[2019-03-29] MEDS: ERYTHROMYCIN OPHTH 0.5%, 1GM EACHEYE SCH ×4 (05:55→20:26)
[2019-03-29] MEDS: OXYcodone/APAP 7.5/325MG TABLET PO PRN ×2 (06:07→17:48)
[2019-03-29] MEDS: GUAIFENESIN 200 MG TABLET PO SCH ×4 (06:08→20:27)
[2019-03-29 07:02] VITALS: BP 115/72
[2019-03-29] MEDS: DOXYCYCLINE 100MG TABLET PO SCH ×2 (08:30→20:27)
[2019-03-29] MEDS: OMEPRAZOLE 20 MG CAPSULE.DR PO SCH (08:30)
[2019-03-29] MEDS: METOPROLOL TARTRATE 100 MG TABLET PO SCH ×2 (08:30→20:27)
[2019-03-29] MEDS: CEFDINIR 300 MG CAPSULE PO SCH ×2 (08:30→20:27)
[2019-03-29] MEDS: RIVAROXABAN 15 MG TABLET PO SCH ×2 (08:30→17:48)
[2019-03-29] MEDS: FUROSEMIDE 40 MG TABLET PO SCH (08:31)
[2019-03-29] MEDS: SENNA/DOCUSATE TABLET PO SCH (08:31)
[2019-03-29] MEDS: CITALOPRAM 20 MG TABLET PO SCH (08:34)
[2019-03-29 12:32] VITALS: BP 120/77
[2019-03-29 19:07] VITALS: BP 104/67
[2019-03-29] MEDS: ZOLPIDEM 10MG TABLET PO SCH (20:27)
[2019-03-30] MEDS: OXYcodone/APAP 7.5/325MG TABLET PO PRN ×3 (01:04→20:43)
[2019-03-30 01:15] VITALS: BP 108/73
[2019-03-30 05:46] LABS: MEAN CORPUSCULAR HEMOGLOBIN 30.2 pg (27.5-34.5); MEAN CORPUSCULAR HGB CONC 33.1 g/dL (33.2-36.2); MEAN CORPUSCULAR VOLUME 91.2 fL (81-97); MEAN PLATELET VOLUME 7.6 fL (7.4-10.4); PLATELET COUNT 304 x10^3/uL (130-400); RED BLOOD COUNT 4.49 x10^6/uL (4.38-5.82); RED CELL DISTRIBUTION WIDTH 14.4 % (9.4-14.8)
[2019-03-30] MEDS: ERYTHROMYCIN OPHTH 0.5%, 1GM EACHEYE SCH ×4 (05:56→20:43)
[2019-03-30] MEDS: GUAIFENESIN 200 MG TABLET PO SCH ×4 (05:56→20:43)
[2019-03-30 06:11] LABS: MD YES
[2019-03-30 06:13] LABS: BAND#(MANUAL) 0.16 x10^3/uL; BANDS%(MANUAL) 1 % (0-7); LYMPH#(MANUAL) 3.26 x10^3/uL (1-3.4); LYMPHS% (MANUAL) 20 % (22-44); METAMYELOCYTES# (MANUAL) 0.33 x10^3/uL (0-0); METAMYELOCYTES% (MANUAL) 2 % (0-1); MONOS#(MANUAL) 0.82 x10^3/uL (0.3-2.7); MONOS% (MANUAL) 5 % (2-9); SEG#(MANUAL) 11.74 x10^3/uL (1.8-6.8); SEGS% (MANUAL) 72 % (42-75)
[2019-03-30 06:14] LABS: <PLATELET ESTIMATE> ADEQUATE; <PLT MORPHOLOGY> NORMAL PLT MORPH; <RBC MORPHOLOGY> NORMAL
[2019-03-30 07:31] VITALS: BP 106/69
[2019-03-30] MEDS: CEFDINIR 300 MG CAPSULE PO SCH ×2 (08:30→20:43)
[2019-03-30] MEDS: SENNA/DOCUSATE TABLET PO SCH (08:30)
[2019-03-30] MEDS: CITALOPRAM 20 MG TABLET PO SCH (08:30)
[2019-03-30] MEDS: OMEPRAZOLE 20 MG CAPSULE.DR PO SCH (08:31)
[2019-03-30] MEDS: METOPROLOL TARTRATE 100 MG TABLET PO SCH ×2 (08:31→20:43)
[2019-03-30] MEDS: DOXYCYCLINE 100MG TABLET PO SCH ×2 (08:31→20:43)
[2019-03-30] MEDS: FUROSEMIDE 40 MG TABLET PO SCH (08:31)
[2019-03-30 08:34] VITALS: BP 108/69
[2019-03-30] MEDS: RIVAROXABAN 15 MG TABLET PO SCH ×2 (08:37→17:15)
[2019-03-30 13:49] VITALS: BP 112/71
[2019-03-30] MEDS: methylPREDNISolone SOD SUCC 125 MG/2 ML IVPush SCH ×2 (17:16→23:06)
[2019-03-30] MEDS: ZOLPIDEM 10MG TABLET PO SCH (20:43)
[2019-03-30 20:48] VITALS: BP 117/79
[2019-03-31 02:58] VITALS: BP 114/72
[2019-03-31 05:20] LABS: MEAN CORPUSCULAR HEMOGLOBIN 30.3 pg (27.5-34.5); MEAN CORPUSCULAR HGB CONC 33.4 g/dL (33.2-36.2); MEAN CORPUSCULAR VOLUME 90.6 fL (81-97); MEAN PLATELET VOLUME 7.5 fL (7.4-10.4); PLATELET COUNT 330 x10^3/uL (130-400); RED BLOOD COUNT 4.58 x10^6/uL (4.38-5.82); RED CELL DISTRIBUTION WIDTH 14.3 % (9.4-14.8)
[2019-03-31 05:44] LABS: MD YES
[2019-03-31 05:46] LABS: <PLATELET ESTIMATE> ADEQUATE; <PLT MORPHOLOGY> NORMAL PLT MORPH; <RBC MORPHOLOGY> NORMAL; BAND#(MANUAL) 0.18 x10^3/uL; BANDS%(MANUAL) 1 % (0-7); LYMPH#(MANUAL) 2.85 x10^3/uL (1-3.4); LYMPHS% (MANUAL) 16 % (22-44); MONOS#(MANUAL) 0.53 x10^3/uL (0.3-2.7); MONOS% (MANUAL) 3 % (2-9); MYELOCYTES# (MANUAL) 0.18 x10^3/uL (0-0); MYELOCYTES% (MANUAL) 1 % (0-0); SEG#(MANUAL) 14.06 x10^3/uL (1.8-6.8); SEGS% (MANUAL) 79 % (42-75)
[2019-03-31] MEDS: GUAIFENESIN 200 MG TABLET PO SCH ×4 (05:56→20:55)
[2019-03-31] MEDS: ERYTHROMYCIN OPHTH 0.5%, 1GM EACHEYE SCH ×4 (05:57→20:55)
[2019-03-31] MEDS: methylPREDNISolone SOD SUCC 125 MG/2 ML IVPush SCH ×4 (05:57→20:55)
[2019-03-31] MEDS: OXYcodone/APAP 7.5/325MG TABLET PO PRN ×3 (06:03→20:56)
[2019-03-31 07:04] VITALS: BP_SYST 116; BP_SYST 93; BP_DIAS 57; BP_DIAS 74
[2019-03-31] MEDS: SENNA/DOCUSATE TABLET PO SCH (08:58)
[2019-03-31] MEDS: METOPROLOL TARTRATE 100 MG TABLET PO SCH ×2 (09:00→20:57)
[2019-03-31] MEDS: OMEPRAZOLE 20 MG CAPSULE.DR PO SCH (09:00)
[2019-03-31] MEDS: RIVAROXABAN 15 MG TABLET PO SCH ×2 (09:00→18:14)
[2019-03-31] MEDS: DOXYCYCLINE 100MG TABLET PO SCH ×2 (09:02→20:56)
[2019-03-31] MEDS: CITALOPRAM 20 MG TABLET PO SCH (09:03)
[2019-03-31] MEDS: FUROSEMIDE 40 MG TABLET PO SCH (09:03)
[2019-03-31] MEDS: CEFDINIR 300 MG CAPSULE PO SCH ×2 (09:03→20:56)
[2019-03-31 12:46] VITALS: BP 113/74
[2019-03-31] MEDS: ONDANSETRON ODT 4 MG PO PRN (13:36)
[2019-03-31 19:58] VITALS: BP 120/76
[2019-03-31] MEDS: ZOLPIDEM 10MG TABLET PO SCH (20:56)
[2019-04-01 02:54] VITALS: BP 108/69
[2019-04-01] MEDS: methylPREDNISolone SOD SUCC 125 MG/2 ML IVPush SCH ×4 (03:00→21:05)
[2019-04-01] MEDS: ERYTHROMYCIN OPHTH 0.5%, 1GM EACHEYE SCH ×4 (04:53→21:00)
[2019-04-01] MEDS: GUAIFENESIN 200 MG TABLET PO SCH ×4 (05:18→21:06)
[2019-04-01 06:11] LABS: MEAN CORPUSCULAR HEMOGLOBIN 29.8 pg (27.5-34.5); MEAN CORPUSCULAR HGB CONC 32.7 g/dL (33.2-36.2); MEAN PLATELET VOLUME 7.4 fL (7.4-10.4); PLATELET COUNT 332 x10^3/uL (130-400); RED BLOOD COUNT 4.57 x10^6/uL (4.38-5.82); RED CELL DISTRIBUTION WIDTH 14.8 % (9.4-14.8)
[2019-04-01 06:14] LABS: ALANINE AMINOTRANSFERASE 37 U/L (12-78); ALBUMIN 3.2 g/dL (3.4-5.0); ANION GAP 5 mmol/L (5-15); CHLORIDE 105 mmol/L (98-107); CREATININE 1.01 mg/dL (0.7-1.3)
[2019-04-01 06:16] LABS: ALKALINE PHOSPHATASE 58 U/L (45-117); BILIRUBIN,TOTAL 0.3 mg/dL (0.2-1.0)
[2019-04-01 06:33] LABS: MD YES
[2019-04-01 06:35] LABS: <PLATELET ESTIMATE> ADEQUATE; <PLT MORPHOLOGY> NORMAL PLT MORPH; <RBC MORPHOLOGY> NORMAL; LYMPH#(MANUAL) 2.16 x10^3/uL (1-3.4); LYMPHS% (MANUAL) 10 % (22-44); MONOS#(MANUAL) 1.94 x10^3/uL (0.3-2.7); MONOS% (MANUAL) 9 % (2-9); REACTIVE LYMPHS # (MANUAL) 0.22 x10^3/uL (0-0); REACTIVE LYMPHS % (MANUAL) 1 % (0-0); SEG#(MANUAL) 17.28 x10^3/uL (1.8-6.8); SEGS% (MANUAL) 80 % (42-75)
[2019-04-01 08:32] VITALS: BP 112/72
[2019-04-01] MEDS: SENNA/DOCUSATE TABLET PO SCH (09:00)
[2019-04-01] MEDS: LACTOBACILLUS CHEW TABLET PO SCH ×3 (09:37→21:06)
[2019-04-01] MEDS: RIVAROXABAN 15 MG TABLET PO SCH ×2 (09:37→18:12)
[2019-04-01] MEDS: DOXYCYCLINE 100MG TABLET PO SCH ×2 (09:38→21:06)
[2019-04-01] MEDS: CEFDINIR 300 MG CAPSULE PO SCH ×2 (09:38→21:06)
[2019-04-01] MEDS: OMEPRAZOLE 20 MG CAPSULE.DR PO SCH (09:38)
[2019-04-01] MEDS: METOPROLOL TARTRATE 100 MG TABLET PO SCH ×2 (09:39→21:05)
[2019-04-01] MEDS: FUROSEMIDE 40 MG TABLET PO SCH (09:39)
[2019-04-01] MEDS: CITALOPRAM 20 MG TABLET PO SCH (09:40)
[2019-04-01 09:41] VITALS: BP 116/78
[2019-04-01] MEDS: ONDANSETRON ODT 4 MG PO PRN (11:29)
[2019-04-01 13:12] VITALS: BP 123/82
[2019-04-01] MEDS: OXYcodone/APAP 7.5/325MG TABLET PO PRN ×2 (15:16→21:05)
[2019-04-01 19:01] VITALS: BP 117/62
[2019-04-01] MEDS: ZOLPIDEM 10MG TABLET PO SCH (21:05)
[2019-04-02 00:30] VITALS: BP 97/64
[2019-04-02] MEDS: methylPREDNISolone SOD SUCC 125 MG/2 ML IVPush SCH ×4 (03:23→21:08)
[2019-04-02] MEDS: ERYTHROMYCIN OPHTH 0.5%, 1GM EACHEYE SCH ×4 (04:06→21:06)
[2019-04-02 05:11] LABS: MEAN CORPUSCULAR HEMOGLOBIN 29.5 pg (27.5-34.5); MEAN CORPUSCULAR VOLUME 92.1 fL (81-97); MEAN PLATELET VOLUME 7.6 fL (7.4-10.4); PLATELET COUNT 316 x10^3/uL (130-400); RED CELL DISTRIBUTION WIDTH 14.9 % (9.4-14.8)
[2019-04-02 05:18] LABS: ALBUMIN 2.9 g/dL (3.4-5.0); ANION GAP 5 mmol/L (5-15); CALCIUM 8.5 mg/dL (8.5-10.1); CHLORIDE 106 mmol/L (98-107); CREATININE 1.14 mg/dL (0.7-1.3)
[2019-04-02] MEDS: GUAIFENESIN 200 MG TABLET PO SCH ×4 (05:38→21:07)
[2019-04-02 05:50] LABS: MD YES
[2019-04-02 05:51] LABS: BAND#(MANUAL) 0.38 x10^3/uL; BANDS%(MANUAL) 2 % (0-7); LYMPH#(MANUAL) 1.13 x10^3/uL (1-3.4); LYMPHS% (MANUAL) 6 % (22-44); MONOS#(MANUAL) 0.75 x10^3/uL (0.3-2.7); MONOS% (MANUAL) 4 % (2-9)
[2019-04-02 05:53] LABS: <PLATELET ESTIMATE> ADEQUATE; <PLT MORPHOLOGY> NORMAL PLT MORPH; ANISOCYTOSIS 1+; METAMYELOCYTES# (MANUAL) 0.19 x10^3/uL (0-0); METAMYELOCYTES% (MANUAL) 1 % (0-1); SEG#(MANUAL) 16.36 x10^3/uL (1.8-6.8); SEGS% (MANUAL) 87 % (42-75)
[2019-04-02 07:36] VITALS: BP 103/68
[2019-04-02] MEDS: SENNA/DOCUSATE TABLET PO SCH (09:00)
[2019-04-02] MEDS: CEFDINIR 300 MG CAPSULE PO SCH ×2 (09:09→21:07)
[2019-04-02] MEDS: RIVAROXABAN 15 MG TABLET PO SCH ×2 (09:09→16:01)
[2019-04-02] MEDS: DOXYCYCLINE 100MG TABLET PO SCH ×2 (09:09→21:07)
[2019-04-02] MEDS: LACTOBACILLUS CHEW TABLET PO SCH ×3 (09:09→21:07)
[2019-04-02] MEDS: FUROSEMIDE 40 MG TABLET PO SCH (09:10)
[2019-04-02] MEDS: ONDANSETRON ODT 4 MG PO PRN (09:10)
[2019-04-02] MEDS: OMEPRAZOLE 20 MG CAPSULE.DR PO SCH (09:11)
[2019-04-02] MEDS: METOPROLOL TARTRATE 100 MG TABLET PO SCH ×2 (09:22→21:07)
[2019-04-02] MEDS: OXYcodone/APAP 7.5/325MG TABLET PO PRN ×2 (09:22→21:08)
[2019-04-02] MEDS: CITALOPRAM 20 MG TABLET PO SCH (09:23)
[2019-04-02 15:54] VITALS: BP 121/73
[2019-04-02 20:00] VITALS: BP 114/56
[2019-04-02] MEDS: ZOLPIDEM 10MG TABLET PO SCH (21:07)
[2019-04-03 02:00] VITALS: BP 111/70
[2019-04-03] MEDS: methylPREDNISolone SOD SUCC 125 MG/2 ML IVPush SCH ×2 (02:28→08:42)
[2019-04-03] MEDS: ERYTHROMYCIN OPHTH 0.5%, 1GM EACHEYE SCH ×4 (05:47→20:43)
[2019-04-03] MEDS: GUAIFENESIN 200 MG TABLET PO SCH ×4 (06:12→20:41)
[2019-04-03 06:17] LABS: MEAN CORPUSCULAR HEMOGLOBIN 29.5 pg (27.5-34.5); MEAN CORPUSCULAR HGB CONC 32.4 g/dL (33.2-36.2); MEAN CORPUSCULAR VOLUME 91.1 fL (81-97); MEAN PLATELET VOLUME 7.4 fL (7.4-10.4); PLATELET COUNT 325 x10^3/uL (130-400); RED BLOOD COUNT 4.57 x10^6/uL (4.38-5.82); RED CELL DISTRIBUTION WIDTH 14.9 % (9.4-14.8)
[2019-04-03 06:55] VITALS: BP 112/67
[2019-04-03 07:01] LABS: MD YES
[2019-04-03 07:07] LABS: LYMPHS% (MANUAL) 11 % (22-44); MONOS#(MANUAL) 1.04 x10^3/uL (0.3-2.7); MONOS% (MANUAL) 6 % (2-9); MYELOCYTES# (MANUAL) 0.52 x10^3/uL (0-0); MYELOCYTES% (MANUAL) 3 % (0-0); REACTIVE LYMPHS # (MANUAL) 0.17 x10^3/uL (0-0); REACTIVE LYMPHS % (MANUAL) 1 % (0-0); SEG#(MANUAL) 13.67 x10^3/uL (1.8-6.8); SEGS% (MANUAL) 79 % (42-75)
[2019-04-03 07:08] LABS: <PLATELET ESTIMATE> ADEQUATE; <PLT MORPHOLOGY> NORMAL PLT MORPH; <RBC MORPHOLOGY> NORMAL
[2019-04-03] MEDS: RIVAROXABAN 15 MG TABLET PO SCH ×2 (08:41→15:56)
[2019-04-03] MEDS: CITALOPRAM 20 MG TABLET PO SCH (08:41)
[2019-04-03] MEDS: LACTOBACILLUS CHEW TABLET PO SCH ×3 (08:41→20:41)
[2019-04-03] MEDS: METOPROLOL TARTRATE 100 MG TABLET PO SCH ×2 (08:42→20:42)
[2019-04-03] MEDS: OMEPRAZOLE 20 MG CAPSULE.DR PO SCH (08:42)
[2019-04-03] MEDS: DOXYCYCLINE 100MG TABLET PO SCH ×2 (08:42→20:42)
[2019-04-03] MEDS: FUROSEMIDE 40 MG TABLET PO SCH (08:42)
[2019-04-03] MEDS: CEFDINIR 300 MG CAPSULE PO SCH ×2 (08:42→20:41)
[2019-04-03] MEDS: SENNA/DOCUSATE TABLET PO SCH (08:43)
[2019-04-03] MEDS: OXYcodone/APAP 7.5/325MG TABLET PO PRN ×2 (12:19→20:42)
[2019-04-03] MEDS: ONDANSETRON ODT 4 MG PO PRN (15:55)
[2019-04-03 15:59] VITALS: BP 110/76
[2019-04-03 19:06] VITALS: BP 113/71
[2019-04-03] MEDS: ZOLPIDEM 10MG TABLET PO SCH (20:42)
[2019-04-03 20:45] VITALS: BP 102/64
[2019-04-04 00:21] VITALS: BP 101/62
[2019-04-04 05:39] LABS: MEAN CORPUSCULAR HEMOGLOBIN 29.3 pg (27.5-34.5); MEAN CORPUSCULAR VOLUME 91.5 fL (81-97); MEAN PLATELET VOLUME 7.3 fL (7.4-10.4); PLATELET COUNT 271 x10^3/uL (130-400); RED BLOOD COUNT 4.29 x10^6/uL (4.38-5.82); RED CELL DISTRIBUTION WIDTH 14.8 % (9.4-14.8)
[2019-04-04 05:56] LABS: CHLORIDE 108 mmol/L (98-107)
[2019-04-04] MEDS: ERYTHROMYCIN OPHTH 0.5%, 1GM EACHEYE SCH ×2 (06:00→10:34)
[2019-04-04] MEDS: GUAIFENESIN 200 MG TABLET PO SCH ×2 (06:06→11:14)
[2019-04-04 06:12] LABS: ALANINE AMINOTRANSFERASE 32 U/L (12-78); ALBUMIN 2.8 g/dL (3.4-5.0); ALKALINE PHOSPHATASE 44 U/L (45-117); ANION GAP 5 mmol/L (5-15); BILIRUBIN,TOTAL 0.5 mg/dL (0.2-1.0); CALCIUM 8.5 mg/dL (8.5-10.1); CREATININE 0.86 mg/dL (0.7-1.3); MD YES; TOTAL PROTEIN 5.3 g/dL (6.4-8.2)
[2019-04-04 06:14] LABS: <RBC MORPHOLOGY> NORMAL; BAND#(MANUAL) 0.16 x10^3/uL; BANDS%(MANUAL) 1 % (0-7); LYMPHS% (MANUAL) 9 % (22-44); METAMYELOCYTES# (MANUAL) 0.16 x10^3/uL (0-0); METAMYELOCYTES% (MANUAL) 1 % (0-1); MONOS#(MANUAL) 1.24 x10^3/uL (0.3-2.7); MONOS% (MANUAL) 8 % (2-9); MYELOCYTES# (MANUAL) 0.31 x10^3/uL (0-0); MYELOCYTES% (MANUAL) 2 % (0-0); SEG#(MANUAL) 12.25 x10^3/uL (1.8-6.8); SEGS% (MANUAL) 79 % (42-75)
[2019-04-04 06:15] LABS: <PLATELET ESTIMATE> ADEQUATE; <PLT MORPHOLOGY> NORMAL PLT MORPH
[2019-04-04] MEDS: RIVAROXABAN 15 MG TABLET PO SCH (08:00)
[2019-04-04 08:15] VITALS: BP 102/71
[2019-04-04] MEDS: OXYcodone/APAP 7.5/325MG TABLET PO PRN ×2 (08:30→11:15)
[2019-04-04] MEDS: METOPROLOL TARTRATE 100 MG TABLET PO SCH (09:00)
[2019-04-04] MEDS: OMEPRAZOLE 20 MG CAPSULE.DR PO SCH (09:00)
[2019-04-04] MEDS: FUROSEMIDE 40 MG TABLET PO SCH (09:00)
[2019-04-04] MEDS: DOXYCYCLINE 100MG TABLET PO SCH (09:00)
[2019-04-04] MEDS: LACTOBACILLUS CHEW TABLET PO SCH (09:00)
[2019-04-04] MEDS: CITALOPRAM 20 MG TABLET PO SCH (09:00)
[2019-04-04] MEDS: CEFDINIR 300 MG CAPSULE PO SCH (09:00)
[2019-04-04] MEDS: SENNA/DOCUSATE TABLET PO SCH (09:00)
[2019-04-04] MEDS ORDERED: FURO40TA6 PO (12:46)
[2019-04-04] MEDS ORDERED: METO-99 PO (12:46)
[2019-04-04] MEDS ORDERED: GUAI200T3 PO (12:46)
[2019-04-04] MEDS ORDERED: RIVA20TA PO (12:47)
[2019-04-04] MEDS ORDERED: PRED10TA PO (12:47)
[2019-04-04] MEDS ORDERED: RIVA15TA PO (12:47)
[2019-04-04 12:58] VITALS: BP 109/74
== END 2019-04-04 15:50 | disposition home or self-care (01) | DRG 175 ==
LOC: ED 22:43 → EDIP 22:49 → 4EST 23:49 → DCLOUNGE 04-04 15:35
PROVIDERS: ADMIT Family Medicine; ATTEND Family Medicine
DX: I26.99 Other pulmonary embolism without acute cor pulmonale (principal); J96.21 Acute and chronic respiratory failure with hypoxia; J15.9 Unspecified bacterial pneumonia; J81.0 Acute pulmonary edema; M33.20 Polymyositis, organ involvement unspecified; M06.9 Rheumatoid arthritis, unspecified; I27.20 Pulmonary hypertension, unspecified; G47.33 Obstructive sleep apnea (adult) (pediatric); R59.0 Localized enlarged lymph nodes; G89.4 Chronic pain syndrome; T38.0X5A Adverse effect of glucocorticoids and synthetic analogues, initial encounter; D72.829 Elevated white blood cell count, unspecified; E66.9 Obesity, unspecified; Z99.81 Dependence on supplemental oxygen; Z86.718 Personal history of other venous thrombosis and embolism; Z86.711 Personal history of pulmonary embolism; Z87.891 Personal history of nicotine dependence; Z79.899 Other long term (current) drug therapy; Z82.5 Family history of asthma and other chronic lower respiratory diseases; Z80.0 Family history of malignant neoplasm of digestive organs; Z79.52 Long term (current) use of systemic steroids; Z68.34 Body mass index [BMI] 34.0-34.9, adult; Z79.01 Long term (current) use of anticoagulants; Y92.89 Other specified places as the place of occurrence of the external cause
CPT/HCPCS: 36415; 36600; 84145; 87400; 99285; J7620; 71045; 71260; 71275; 76705; 80048; 80053; 82040; 82803; 83605; 83615; 83880; 84484; 85025; 85520; 85610; 85730; 87040; 87070; 87081; 87205; 87324; 87880; 93005; 93306; 94640; 96374; G0378; J0696; J1644; J1650; J7060; Q0162; Q9967; J1940; J2930; J7030; J7512; J7517

== ENCOUNTER 2019-06-15 16:17 | Outpatient (CLI) | payer MEDICAID | END 2019-06-15 23:59 | disposition home or self-care (01) | LOC: RAD 16:17 | PROVIDERS: ATTEND Nurse Practitioner Family | DX: Z02.9 Encounter for administrative examinations, unspecified (principal) ==

== ENCOUNTER 2021-08-30 22:56 | Emergency (ER) | payer OTHER ==
[~2021-08-30] VITALS: Ht 185.4 cm; Wt 150.0 kg
[2021-08-31 01:16] VITALS: BP 142/85
== END 2021-08-31 01:18 | disposition home or self-care (01) ==
LOC: ED 23:22
DX: R07.89 Other chest pain (principal); Z20.822 Contact with and (suspected) exposure to COVID-19; R05 Cough; R06.02 Shortness of breath; R94.31 Abnormal electrocardiogram [ECG] [EKG]; E11.9 Type 2 diabetes mellitus without complications; Z86.718 Personal history of other venous thrombosis and embolism
CPT/HCPCS: 36415; 71045; 80048; 82040; 83880; 84484; 85025; 93005; 99285; U0003; U0005